=== PATIENT | female | born 1990 | race Caucasian/White ===

== ENCOUNTER 2017-12-09 19:49 | Emergency (ER) | payer OTHER ==
[2017-12-09] MEDS ORDERED: TETANUS & DIPHTHERIA TOX,ADULT 0.5 ML VIAL ONE (20:30)
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
[2017-12-09] MEDS ORDERED: KETOROLAC 30 MG/ML INJ ONE (22:58)
[2017-12-09] MEDS ORDERED: DEXAMETHASONE 10 MG/ML VIAL ONE (22:58)
== END 2017-12-09 21:38 | disposition home or self-care (01) ==
LOC: ER 19:49
PROC: 0JQJ0ZZ Repair Right Hand Subcutaneous Tissue and Fascia, Open Approach (ICD-10-PCS; principal; 2017-12-09)
DX: S61.011A Laceration without foreign body of right thumb without damage to nail, initial encounter (principal); W25.XXXA Contact with sharp glass, initial encounter; Y93.89 Activity, other specified; Y92.89 Other specified places as the place of occurrence of the external cause; Y99.8 Other external cause status; Z23 Encounter for immunization; F17.210 Nicotine dependence, cigarettes, uncomplicated
CPT/HCPCS: 90714; 99284; J1100

== ENCOUNTER 2017-12-23 14:52 | Emergency (ER) | payer OTHER ==
--- NOTE | 2017-12-23 15:46 | EDPHYS ---
Physician Documentation [facility] Name: Saba Morales Age: 27 yrs Sex: Female : 1990 Arrival Date: 12/23/2017 Time: 14:55 Bed 14 Private MD: ED Physician Anderson La HPI: 12/23 15:44 This 27 yrs old Female presents to ER via Ambulatory with complaints of pm1 Suture Removal. 15:44 The patient has sutures on the right hand. Previous treatment: The patient was pm1 initially treated on December 09, 2017, the care was rendered at [facility], Treatment type: The patient's original treatment included sutures. Sutures/danny progress: The patient has no c/o's. The wound is well-healing with no redness, swelling, discharge, or dehiscence reported. The patient has not experienced similar symptoms in the past. The patient has not recently seen a physician. 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 - Social history:: Smoking status: Patient/guardian denies using tobacco. - Ebola Screening: : Patient negative for fever greater than or equal to 101.5 degrees Fahrenheit, and additional compatible Ebola Virus Disease symptoms Patient denies exposure to infectious person Patient denies travel to an Ebola-affected area in the 21 days before illness onset No symptoms or risks identified at this time. ROS: 15:44 Constitutional: Negative for fever, chills, and weight loss, Eyes: Negative for injury, pm1 pain, redness, and discharge, ENT: Negative for injury, pain, and discharge, Neck: Negative for injury, pain, and swelling, Cardiovascular: Negative for chest pain, palpitations, and edema, Respiratory: Negative for shortness of breath, cough, wheezing, and pleuritic chest pain, Abdomen/GI: Negative for abdominal pain, nausea, vomiting, diarrhea, and constipation, Back: Negative for injury and pain, MS/Extremity: Negative for injury and deformity, Neuro: Negative for headache, weakness, numbness, tingling, and seizure. 15:44 Skin: Negative for injury, rash, and discoloration. Exam: 15:44 Constitutional: This is a well developed, well nourished patient who is awake, alert, pm1 and in no acute distress. Head/Face: Normocephalic, atraumatic. Chest/axilla: Normal chest wall appearance and motion. Nontender with no deformity. No lesions are appreciated. Cardiovascular: Regular rate and rhythm with a normal S1 and S2. No gallops, murmurs, or rubs. Normal PMI, no JVD. No pulse deficits. Respiratory: Lungs have equal breath sounds bilaterally, clear to auscultation and percussion. No rales, rhonchi or wheezes noted. No increased work of breathing, no retractions or nasal flaring. Back: No spinal tenderness. No costovertebral tenderness. Full range of motion. 15:44 Skin: Wound recheck: Suture laceration closure: the wound is healing well, the edges are well approximated, no evidence of dehiscence, no drainage, no erythema, no swelling. Vital Signs: 15:31 BP 135 / 93; Pulse 84; Resp 16; Temp 98.2; Pulse Ox 100% on R/A; Pain 5/10; iw Procedures: 15:43 Suture/Staple removal: Removed 9 sutures, from right hand, site appears well healed, pm1 Patient tolerated well. MDM: 15:31 Patient medically screened. pm1 15:44 Data reviewed: vital signs. Data interpreted: Pulse oximetry: on room air is 100 %. pm1 Interpretation: normal. Counseling: I had a detailed discussion with the patient and/or guardian regarding: the historical points, exam findings, and any diagnostic results supporting the discharge/admit diagnosis, the need for outpatient follow up, a hand specialist, to return to the emergency department if symptoms worsen or persist or if there are any questions or concerns that arise at home. Administered Medications: No medications were administered Disposition: 18:56 Co-signature as Attending Physician, Anderson La MD I agree with the assessment and kdr plan of care. Disposition: 12/23/17 15:46 Discharged to Home. Impression: Encounter for removal of sutures. - Condition is Stable. - Discharge Instructions: Suture Removal, Care After. - Medication Reconciliation Form, Thank You Letter, Antibiotic Education, Prescription Opioid Use form. - Follow up: Emergency Department; When: As needed; Reason: Worsening of condition. Follow up: Marquise Taylor MD; When: 2 - 3 days; Reason: Recheck today's complaints, Continuance of care, Re-evaluation by your physician. - Problem is new. - Symptoms have improved. Signatures: Anderson La MD MD kdr Meeta Amos RN RN iw Chidi Marvin NP SUPERVISOR [employer]ESSING pm1 Corrections: (The following items were deleted from the chart) 15:55 15:46 12/23/2017 15:46 Discharged to Home. Impression: Encounter for removal of iw sutures. Condition is Stable. Forms are Medication Reconciliation Form, Thank You Letter, Antibiotic Education, Prescription Opioid Use. Follow up: Emergency Department; When: As needed; Reason: Worsening of condition. Follow up: Marquise Taylor; When: 2 - 3 days; Reason: Recheck today's complaints, Continuance of care, Re-evaluation by your physician. Problem is new. Symptoms have improved. pm1
--- NOTE | 2017-12-23 15:46 | ER ---
Nurse's Notes [facility] Name: Saba Morales Age: 27 yrs Sex: Female : 1990 Arrival Date: 12/23/2017 Time: 14:55 Bed 14 Private MD: Diagnosis: Encounter for removal of sutures Presentation: 12/23 15:27 Presenting complaint: Patient states: needs sutures removed from right thumb, sutures iw placed 2 weeks ago. Transition of care: patient was not received from another setting of care. Onset of symptoms was December 23, 2017. Risk Assessment: Do you want to hurt yourself or someone else? Patient reports no desire to harm self or others. Initial Sepsis Screen: Does the patient meet any 2 criteria? No. Patient's initial sepsis screen is negative. Does the patient have a suspected source of infection? No. Patient's initial sepsis screen is negative. Care prior to arrival: None. 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 - Social history:: Smoking status: Patient/guardian denies using tobacco. - Ebola Screening: : Patient negative for fever greater than or equal to 101.5 degrees Fahrenheit, and additional compatible Ebola Virus Disease symptoms Patient denies exposure to infectious person Patient denies travel to an Ebola-affected area in the 21 days before illness onset No symptoms or risks identified at this time. Screenin:51 Abuse screen: Denies threats or abuse. Denies injuries from another. Nutritional iw screening: No deficits noted. Tuberculosis screening: No symptoms or risk factors identified. Fall Risk None identified. Assessment: 15:50 General: Appears in no apparent distress. Behavior is calm, cooperative. Pain: iw Complains of pain in right hand. Neuro: Level of Consciousness is awake, alert, obeys commands, Oriented to person, place, time, situation, Moves all extremities. Full function. Cardiovascular: Patient's skin is warm and dry. Respiratory: Respiratory pattern is. Derm: Skin is pink, warm \T\ dry. normal. Musculoskeletal: Range of motion: intact in all extremities. Vital Signs: 15:31 BP 135 / 93; Pulse 84; Resp 16; Temp 98.2; Pulse Ox 100% on R/A; Pain 5/10; iw ED Course: 14:55 Patient arrived in ED. rg4 15:27 Triage completed. iw 15:30 Chidi Marvin NP is PHCP. pm1 15:30 Anderson La MD is Attending Physician. pm1 15:31 Arm band placed on. iw 15:34 Armen Richard LVN is Primary Nurse. em 15:45 Marquise Taylor MD is Referral Physician. pm1 15:51 No provider procedures requiring assistance completed. Patient did not have IV access iw during this emergency room visit. 15:52 Patient has correct armband on for positive identification. iw Administered Medications: No medications were administered Outcome: 15:46 Discharge ordered by MD. pm1 15:51 Discharged to home ambulatory, with family. iw 15:51 Condition: good 15:51 Discharge instructions given to patient, Instructed on discharge instructions, follow up and referral plans. Demonstrated understanding of instructions, follow-up care. 15:51 No charge visit due to suture removal. 15:55 Patient left the ED. iw Signatures: Armen Richard LVN LVN em Meeta Amos RN RN iw Chidi Marvin NP [employer] pm1 Sandi Morales rg4
== END 2017-12-23 15:55 | disposition home or self-care (01) ==
LOC: ER 14:52
DX: Z48.02 Encounter for removal of sutures (principal)